=== PATIENT | female | born 1965 | race African-American/Black ===

== ENCOUNTER 2016-09-24 19:05 | Emergency (ER) | payer MEDICAID ==
[~2016-09-24] VITALS: Ht 167.6 cm; Wt 113.4 kg
[2016-09-24 20:29] LABS: MEAN CORPUSCULAR VOLUME 106 FL (80-99); MEAN PLATELET VOLUME 6.4 FL (6.5-10.1); PLATELET COUNT 289 K/UL (150-450); RED BLOOD COUNT 4.06 M/UL (4.20-5.40); WHITE BLOOD COUNT 5.5 K/UL (4.8-10.8)
[2016-09-24 20:30] LABS: APPEARANCE,URINE SLIGHTLY CLOUDY; KETONES,URINE NEGATIVE (NEGATIVE); LEUKOCYTE ESTERASE ,URINE 2+ (NEGATIVE); NITRITE,URINE POSITIVE (NEGATIVE); PH,URINE 7 (4.5-8.0); PROTEIN,URINE 2+ (NEGATIVE); UROBILINOGEN,URINE 4 MG/DL (0.0-1.0)
[2016-09-24 20:40] LABS: BACTERIA,URINE MANY /HPF; CALCIUM OXALATE CRYSTALS,UR FEW /LPF; SQUAMOUS EPITHELIAL CELL,UR MANY /LPF (NONE/OCC); TROPONIN I < 0.30 ng/mL (<=0.30)
[2016-09-24 20:43] LABS: ALANINE AMINOTRANSFERASE 35 U/L (3-33); ANION GAP 19 (5-15); ASPARTATE AMINO TRANSFERASE 94 U/L (5-40); CALCIUM 8.6 mg/dL (8.6-10.2); CARBON DIOXIDE 27 mEQ/L (20-30); CHLORIDE 99 mEQ/L (98-107); CREATININE 0.5 mg/dL (0.5-0.9); GLOMERULAR FILTRATION RATE > 60 mL/min (>60); HEMOLYSIS 8; LIPASE 40 U/L (< 60); POTASSIUM 3.2 mEQ/L (3.4-4.9); SODIUM 145 mEQ/L (135-145); TOTAL PROTEIN 7.5 g/dL (6.6-8.7)
[2016-09-24 21:58] VITALS: BP 134/86
[2016-09-24] MEDS ORDERED: Levofloxacin 500mg tab ORAL ONE (22:00)
[2016-09-24 22:01] LABS: BASOPHILS % (MANUAL) 1 % (0-2); EOSINOPHILS % (MANUAL) 5 % (0-3); LYMPHOCYTES % (MANUAL) 59 % (20-45); NEUTROPHILS % (MANUAL) 28 % (45-75); NUCLEATED RED BLOOD CELLS 1 /100 WBC; TOTAL CELLS COUNTED 100
[2016-09-24 22:02] LABS: ANISOCYTOSIS 1+; BAND NEUTROPHILS % (MANUAL) 0 % (0-8); MACROCYTES 2+; PLATELET ESTIMATE ADEQUATE; PLATELET MORPHOLOGY NORMAL; POLYCHROMASIA 1+
[2016-09-24] MEDS ORDERED: BACTRIM DS TAB1 EAC1 ORAL (22:07)
[2016-09-24] MEDS ORDERED: ZOFRAN4 M1 ORAL (22:08)
[2016-09-24 22:33] VITALS: BP 134/86
--- NOTE | 2016-09-25 08:58 | Diagnostic Imaging Report ---
Clinical Indication: Abdominal pain Technique: No oral contrast utilized, per emergency room physician request IV administration nonionic contrast. Venous phase spiral acquisition obtained through the abdomen and pelvis. Multiplanar reconstructions were generated. Total dose length product 1111 mGycm. CTDIvol(s) 19 mGy Comparison: None Findings: The appendix is normal. There is no evidence of diverticulosis or diverticulitis. No small bowel distention. No free or loculated intraperitoneal air or fluid. Distal esophagus, stomach, duodenum are unremarkable. The liver demonstrates diffuse low attenuation, consistent with fatty change. No focal abnormalities. The gallbladder is nondistended, demonstrates slight heterogeneity to the contents, small non-radiopaque calculi are not completely excludable. Bile ducts, pancreas, adrenals, spleen, kidneys are unremarkable. No retroperitoneal or mesenteric mass or adenopathy. No pelvic mass or adenopathy. The included lung bases are clear except for minimal atelectatic changes. The bones demonstrate mild degenerative spondylosis changes. Impression: No acute process Fatty liver Cannot rule out cholelithiasis. Consider sonography for further evaluation as clinically indicated This agrees with the preliminary interpretation provided overnight by Dr. Ponce The CT scanner at [facility] is accredited by the [employer] and the scans are performed using protocols designed to limit radiation exposure to as low as reasonably achievable to attain images of sufficient resolution adequate for diagnostic evaluation.
--- NOTE | 2016-09-27 14:17 | Emergency Room Report ---
History of Present Illness General Chief Complaint: Nausea, Vomiting, and Diarrhea Source: Patient, EMS Present Illness HPI Patient is a 51-year-old female brought in by EMS after increased abdominal pain as well as vomiting. The patient gradual onset of symptoms patient had prior history similar type symptoms. She reports having some pain to the epigastric area does not radiate. She denied any hematemesis or bloody stools. She states she is not . Allergies: Coded Allergies: PENICILLINS (Unverified Allergy, Unknown, 09/24/16) Patient History Reviewed Nursing Documentation: PMH: Agreed, PSxH: Agreed Nursing Documentation-PMH Past Medical History: No History, Except For History Of Psychiatric Problem: Yes - DEPRESSION Review of Systems All Other Systems: negative except mentioned in HPI Physical Exam Vital Signs Date Time Temp Pulse Resp B/P Pulse Ox O2 Delivery O2 Flow Rate FiO2 09/24/16 19:01 98.2 85 18 138/78 98 Room Air Sp02 EP Interpretation: reviewed, normal General Appearance: normal inspection, well appearing, no apparent distress, alert, GCS 15 Head: atraumatic ENT: normal ENT inspection, hearing grossly normal, normal voice Neck: normal inspection, full range of motion, supple, no bony tend Respiratory: normal inspection, lungs clear, normal breath sounds, no respiratory distress, no retraction, no wheezing Cardiovascular #1: regular rate, rhythm, no edema Gastrointestinal: normal inspection, normal bowel sounds, non tender, soft, no guarding, no hernia Genitourinary: no CVA tenderness Musculoskeletal: normal inspection, back normal, normal range of motion Neurologic: normal inspection, alert, oriented x3, responsive, racquet maker III-XII nml as tested, speech normal Psychiatric: normal inspection, judgement/insight normal, mood/affect normal Skin: normal inspection, normal color, no rash Medical Decision Making Diagnostic Impression: Primary Impression: Gallstone Additional Impression: Urinary tract infection ER Course Patient presented for abdominal pain. Differential diagnoses included ischemic bowel, appendicitis, perforated viscus, abdominal aortic aneurysm, inferior myocardial infarction, viral gastroenteritis Because of complexity of patient's case laboratory testing and imaging studies were ordered. The patient was given Zofran as well as IV fluids. CT the head and pelvis read by radiologist showed probable gallstones. The patient was noted to have urinary tract infection. She was given prescription for oral antibiotics The patient is advised to follow up with primary care doctor in 1-2 days. Patient is advised to return if any worsening condition or if any changes in status that are concerning. Labs Test 09/24/16 20:00 White Blood Count 5.5 K/UL (4.8-10.8) Red Blood Count 4.06 M/UL (4.20-5.40) Hemoglobin 14.7 G/DL (12.0-16.0) Hematocrit 43.1 % (37.0-47.0) Mean Corpuscular Volume 106 FL (80-99) Mean Corpuscular Hemoglobin 36.0 PG (27.0-31.0) Mean Corpuscular Hemoglobin Concent 34.0 G/DL (32.0-36.0) Red Cell Distribution Width 14.0 % (11.6-14.8) Platelet Count 289 K/UL (150-450) Mean Platelet Volume 6.4 FL (6.5-10.1) Neutrophils (%) (Auto) % (45.0-75.0) Lymphocytes (%) (Auto) % (20.0-45.0) Monocytes (%) (Auto) % (1.0-10.0) Eosinophils (%) (Auto) % (0.0-3.0) Basophils (%) (Auto) % (0.0-2.0) Differential Total Cells Counted 100 Neutrophils % (Manual) 28 % (45-75) Lymphocytes % (Manual) 59 % (20-45) Monocytes % (Manual) 7 % (1-10) Eosinophils % (Manual) 5 % (0-3) Basophils % (Manual) 1 % (0-2) Band Neutrophils 0 % (0-8) Nucleated Red Blood Cells 1 /100 WBC Platelet Estimate Adequate Platelet Morphology Normal Polychromasia 1+ Anisocytosis 1+ Macrocytosis 2+ Urine Color Yellow Urine Appearance Slightly cloudy Urine pH 7 (4.5-8.0) Urine Specific [place] 1.010 (1.005-1.035) Urine Protein 2+ (NEGATIVE) Urine Glucose (UA) Negative (NEGATIVE) Urine Ketones Negative (NEGATIVE) Urine Occult Blood 1+ (NEGATIVE) Urine Nitrite Positive (NEGATIVE) Urine Bilirubin Negative (NEGATIVE) Urine Urobilinogen 4 MG/DL (0.0-1.0) Urine Leukocyte Esterase 2+ (NEGATIVE) Urine RBC 2-4 /HPF (0 - 2) Urine WBC 10-15 /HPF (0 - 2) Urine Squamous Epithelial Cells Many /LPF (NONE/OCC) Urine Calcium Oxalate Crystals Few /LPF (NONE) Urine Bacteria Many /HPF (NONE) Sodium Level 145 mEQ/L (135-145) Potassium Level 3.2 mEQ/L (3.4-4.9) Chloride Level 99 mEQ/L (98-107) Carbon Dioxide Level 27 mEQ/L (20-30) Anion Gap 19 (5-15) Blood Urea Nitrogen 7 mg/dL (7-23) Creatinine 0.5 mg/dL (0.5-0.9) Estimat Glomerular Filtration Rate > 60 mL/min (>60) Glucose Level 86 mg/dL (74-106) Calcium Level 8.6 mg/dL (8.6-10.2) Total Bilirubin 0.4 mg/dL (0.0-1.2) Aspartate Amino Transf (AST/SGOT) 94 U/L (5-40) Alanine Aminotransferase (ALT/SGPT) 35 U/L (3-33) Alkaline Phosphatase 108 U/L (35-104) Troponin I < 0.30 ng/mL (<=0.30) Total Protein 7.5 g/dL (6.6-8.7) Albumin 3.9 g/dL (3.5-5.2) Globulin 3.6 g/dL Albumin/Globulin Ratio 1.0 (1.0-2.7) Lipase 40 U/L (< 60) Last Vital Signs Date Time Temp Pulse Resp B/P Pulse Ox O2 Delivery O2 Flow Rate FiO2 09/24/16 22:33 98.3 80 17 134/86 98 Room Air Status: improved Disposition: HOME, SELF-CARE Condition: Stable Scripts Ondansetron (Zofran) 4 Mg Tablet 4 MG ORAL Q6H Y for Nausea & Vomiting, #20 TAB Prov: Erasto Smith 09/24/16 Trimethoprim/Sulfamethoxazole 160/800* (BACTRIM DS TABLET*) 1 Each Tablet 1 TAB ORAL Q12H, #14 TAB 0 Refills Prov: Erasto Smith 09/24/16 Patient Instructions: Biliary Colic, Urinary Tract Infection Erasto Smith Sep 27, 2016 14:17
== END 2016-09-24 22:35 | disposition home or self-care (01) ==
LOC: EDBD 19:05 → EMR 21:34
DX: K80.20 Calculus of gallbladder without cholecystitis without obstruction (principal); N39.0 Urinary tract infection, site not specified; Z88.0 Allergy status to penicillin; F32.9 Major depressive disorder, single episode, unspecified
CPT/HCPCS: 36415; 74177; 80053; 81003; 83690; 84484; 85007; 85025; 87086; 87181; 96374; 99284; J2405; Q9967

== ENCOUNTER 2016-11-26 09:25 | Inpatient (IN) | payer MEDICAID ==
[~2016-11-26] VITALS: Ht 167.6 cm; Wt 128.8 kg
[~2016-11-26 09:25] MED LIST: BACTRIM DS TAB1 EAC1 ORAL; ZOFRAN4 M1 ORAL
[2016-11-26] MEDS ORDERED: LISINOPRIL10 MG ORAL (09:35)
[2016-11-26] MEDS ORDERED: ZOLOFT25 MG ORAL (09:35)
[2016-11-26] MEDS ORDERED: Solu-MEDROL 125mg Inj IVP ONE (09:45)
[2016-11-26] MEDS ORDERED: DiphenhydrAMINE 50mg/ml Inj IVP ONE (09:45)
[2016-11-26] MEDS ORDERED: Tubing IV Cassette IV ONE (09:46)
--- NOTE | 2016-11-26 09:59 | Emergency Room Report ---
History of Present Illness General Chief Complaint: Nausea Source: Patient Present Illness HPI 51 YO F walk-in patient with 2 days progressively worse facial swelling, lip swelling. Recently started ACEi for HTN. C/o mild throat irritation but no chest pain or SOB or abd pain or fever/chills, rash. Didnt take any OTC meds before coming to ED. Never had these symptoms before. Allergies: Coded Allergies: PENICILLINS (Unverified Allergy, Unknown, 09/24/16) Patient History Past Medical History: HTN Past Surgical History: none Pertinent Family History: none Social History: Denies: alcohol use, drug use, smoking Now: No Immunizations: UTD Reviewed Nursing Documentation: PMH: Agreed, PSxH: Agreed Nursing Documentation-PMH Hx Cardiac Problems: No Hx Hypertension: Yes Hx Pacemaker: No Hx Asthma: No Hx COPD: No Hx Diabetes: No Hx Cancer: No Hx Gastrointestinal Problems: No Hx Dialysis: No Hx Neurological Problems: No Hx Cerebrovascular Accident: No Hx Seizures: No Review of Systems All Other Systems: negative except mentioned in HPI Physical Exam Vital Signs Date Time Temp Pulse Resp B/P Pulse Ox O2 Delivery O2 Flow Rate FiO2 11/26/16 09:18 97.9 78 18 120/70 99 Room Air Sp02 EP Interpretation: reviewed, normal General Appearance: normal inspection, well appearing, alert, GCS 15, non-toxic , mild distress Head: normocephalic, atraumatic Eyes: bilateral eye EOMI, bilateral eye PERRL ENT: normal ENT inspection, hearing grossly normal, normal voice, other - Facial edema, angioedema of lips, tongue normal size. Oropharynx clear Neck: normal inspection, full range of motion, supple, no bony tend Respiratory: normal inspection, lungs clear, normal breath sounds, no respiratory distress, no retraction, no wheezing Cardiovascular #1: regular rate, rhythm, no edema Gastrointestinal: normal inspection, normal bowel sounds, non tender, soft, no guarding, no hernia Genitourinary: no CVA tenderness Musculoskeletal: normal inspection, back normal, normal range of motion, Herberth' s Sign negative Neurologic: normal inspection, alert, oriented x3, responsive, vulnerability assessment analyst III-XII nml as tested, motor strength/tone normal, speech normal Psychiatric: normal inspection, judgement/insight normal, mood/affect normal Skin: normal inspection, normal color, no rash Lymphatic: normal inspection Medical Decision Making Diagnostic Impression: Primary Impression: Angioedema Qualified Codes: T78.3XXA - Angioneurotic edema, initial encounter ER Course Labs: No leuks. H&H stable. Elevated LFTs but bili normal. Improved with Bendaryl, steroids Angioedema - likely from ACEi - Airway patent Admission to tele for further monitoring/evaluation as patient continued to take ACEi today Endorsed to Dr Michel for tele admission at 1109am EKG Diagnostic Results Rate: normal Rhythm: NSR ST Segments: no acute changes ASA given to the pt in ED: No Rhythm Strip Diag. Results EP Interpretation: yes Rate: 83 Rhythm: NSR, no PVC's, no ectopy Last Vital Signs Date Time Temp Pulse Resp B/P Pulse Ox O2 Delivery O2 Flow Rate FiO2 11/26/16 09:18 97.9 78 18 120/70 99 Room Air Status: improved Disposition: ADMITTED INPATIENT Condition: Serious Referrals: [facility],REFERRING (PCP) SALINA BUNN M.D. Nov 26, 2016 09:59
[2016-11-26 10:00] VITALS: BP 152/108
[2016-11-26 10:06] LABS: MEAN CORPUSCULAR HEMOGLOBIN 34.6 PG (27.0-31.0); MEAN CORPUSCULAR HGB CONC 31.7 G/DL (32.0-36.0); MEAN CORPUSCULAR VOLUME 109 FL (80-99); MEAN PLATELET VOLUME 7.4 FL (6.5-10.1); PLATELET COUNT 199 K/UL (150-450); RED BLOOD COUNT 4.43 M/UL (4.20-5.40); RED CELL DISTRIBUTION WIDTH 14.2 % (11.6-14.8); WHITE BLOOD COUNT 5.4 K/UL (4.8-10.8)
[2016-11-26 10:17] LABS: ALANINE AMINOTRANSFERASE 127 U/L (3-33); ALBUMIN/GLOBULIN RATIO 1.2 (1.0-2.7); ANION GAP 19 (5-15); ASPARTATE AMINO TRANSFERASE 252 U/L (5-40); CALCIUM 9.4 mg/dL (8.6-10.2); CARBON DIOXIDE 27 mEQ/L (20-30); CHLORIDE 97 mEQ/L (98-107); CREATININE 0.6 mg/dL (0.5-0.9); GLOMERULAR FILTRATION RATE > 60 mL/min (>60); HEMOLYSIS 7; POTASSIUM 3.6 mEQ/L (3.4-4.9); SODIUM 143 mEQ/L (135-145); TOTAL PROTEIN 8.1 g/dL (6.6-8.7)
[2016-11-26 10:59] LABS: BAND NEUTROPHILS % (MANUAL) 0 % (0-8); BASOPHILS % (MANUAL) 0 % (0-2); EOSINOPHILS % (MANUAL) 2 % (0-3); LYMPHOCYTES % (MANUAL) 79 % (20-45); MACROCYTES 1+; NEUTROPHILS % (MANUAL) 13 % (45-75); PLATELET ESTIMATE ADEQUATE; PLATELET MORPHOLOGY NORMAL; TOTAL CELLS COUNTED 100
[2016-11-26 11:00] LABS: HYPOCHROMASIA 1+
[2016-11-26 12:00] VITALS: BP 134/83
[2016-11-26 13:00] VITALS: BP 140/98
--- NOTE | 2016-11-26 13:13 | History and Physical ---
History of Present Illness General Date patient seen: Nov 26, 2016 Reason for Hospitalization: Nausea Present Illness HPI 51 year old lady with hx of htn was started recently on Lisinopril. She developed swelling of lips and came to ER for evaluation. She was diagnosed to have angioedema secondary to YAHIR inhibitors. and admitted for further w/u. Allergies: Coded Allergies: LISINOPRIL (Verified Allergy, Unknown, 11/26/16) PENICILLINS (Unverified Allergy, Unknown, 09/24/16) Medication History Scheduled Lisinopril* (Lisinopril*), 20 MG ORAL DAILY, (Reported) Sertraline Hcl* (Zoloft*), Unknown Dose ORAL DAILY, (Reported) Trimethoprim/Sulfamethoxazole 160/800* (Bactrim Ds Tablet*), 1 TAB ORAL Q12H Scheduled PRN Ondansetron (Zofran), 4 MG ORAL Q6H PRN for Nausea & Vomiting Patient History Healthcare decision maker Resuscitation status Advanced Directive on File Past Medical/Surgical History Past Medical/Surgical History: (1) HTN (hypertension) Review of Systems All Other Systems: negative except mentioned in HPI Physical Exam General Appearance: WD/WN Lines, tubes and drains: peripheral HEENT: normocephalic Neck: non-tender, normal alignment Respiratory/Chest: chest wall non-tender, normal breath sounds Cardiovascular/Chest: normal peripheral pulses Abdomen: normal bowel sounds Genitourinary/Rectal: normal genital exam Extremities: normal range of motion Last 24 Hour Vital Signs Date Time Temp Pulse Resp B/P Pulse Ox O2 Delivery O2 Flow Rate FiO2 11/26/16 12:27 97.9 71 16 134/83 99 Room Air 11/26/16 12:00 71 16 134/83 99 Room Air 11/26/16 10:00 64 16 152/108 95 Room Air 11/26/16 09:18 97.9 78 18 120/70 99 Room Air Laboratory Tests Test 11/26/16 09:25 White Blood Count 5.4 K/UL (4.8-10.8) Red Blood Count 4.43 M/UL (4.20-5.40) Hemoglobin 15.3 G/DL (12.0-16.0) Hematocrit 48.4 % (37.0-47.0) H Mean Corpuscular Volume 109 FL (80-99) H Mean Corpuscular Hemoglobin 34.6 PG (27.0-31.0) H Mean Corpuscular Hemoglobin Concent 31.7 G/DL (32.0-36.0) L Red Cell Distribution Width 14.2 % (11.6-14.8) Platelet Count 199 K/UL (150-450) Mean Platelet Volume 7.4 FL (6.5-10.1) Neutrophils (%) (Auto) % (45.0-75.0) Lymphocytes (%) (Auto) % (20.0-45.0) Monocytes (%) (Auto) % (1.0-10.0) Eosinophils (%) (Auto) % (0.0-3.0) Basophils (%) (Auto) % (0.0-2.0) Differential Total Cells Counted 100 Neutrophils % (Manual) 13 % (45-75) L Lymphocytes % (Manual) 79 % (20-45) H Monocytes % (Manual) 6 % (1-10) Eosinophils % (Manual) 2 % (0-3) Basophils % (Manual) 0 % (0-2) Band Neutrophils 0 % (0-8) Platelet Estimate Adequate Platelet Morphology Normal Hypochromasia 1+ Macrocytosis 1+ Sodium Level 143 mEQ/L (135-145) Potassium Level 3.6 mEQ/L (3.4-4.9) Chloride Level 97 mEQ/L (98-107) L Carbon Dioxide Level 27 mEQ/L (20-30) Anion Gap 19 (5-15) H Blood Urea Nitrogen 6 mg/dL (7-23) L Creatinine 0.6 mg/dL (0.5-0.9) Estimat Glomerular Filtration Rate > 60 mL/min (>60) Glucose Level 101 mg/dL (74-106) Calcium Level 9.4 mg/dL (8.6-10.2) Total Bilirubin 0.8 mg/dL (0.0-1.2) Aspartate Amino Transf (AST/SGOT) 252 U/L (5-40) H Alanine Aminotransferase (ALT/SGPT) 127 U/L (3-33) H Alkaline Phosphatase 120 U/L (35-104) H Total Protein 8.1 g/dL (6.6-8.7) Albumin 4.5 g/dL (3.5-5.2) Globulin 3.6 g/dL Albumin/Globulin Ratio 1.2 (1.0-2.7) Height (Feet): 5 Height (Inches): 6.00 Weight (Pounds): 284 Medications Current Medications Medications (Trade) Dose Ordered Sig/Donny Route PRN Reason Start Time Stop Time Status Last Admin Dose Admin Ondansetron HCl (Zofran) 4 mg Q6H PRN ORAL Nausea & Vomiting 11/26/16 13:15 12/26/16 13:14 UNV Sertraline HCl (Zoloft) 10 mg DAILY ORAL 11/27/16 09:00 12/27/16 08:59 UNV Assessment/Plan Problem List: (1) Angioedema ICD Codes: T78.3XXA - Angioneurotic edema, initial encounter SNOMED: 14412615 Qualifiers: Qualified Codes: T78.3XXA - Angioneurotic edema, initial encounter (2) HTN (hypertension) ICD Codes: I10 - Essential (primary) hypertension SNOMED: 30367662 Assessment/Plan steroids symptomatic treatment monitor BP JORJE Andrews Nov 26, 2016 13:13
[2016-11-26] MEDS ORDERED: Labetalol 5mg/ml 20ml vial IV PRN (13:15)
[2016-11-26] MEDS ORDERED: Mylanta II UD 30ml ORAL PRN (13:15)
[2016-11-26 13:16] LABS: OTHERS PATHOLOGIST COMMENT
[2016-11-26] MEDS: Morphine Sulfate 2mg/ml Inj IVP PRN ×2 (13:47→18:05)
[2016-11-26 16:30] VITALS: BP 137/80
[2016-11-26] MEDS: Solu-MEDROL 125mg Inj IV SCH ×2 (17:23→23:34)
[2016-11-26] MEDS ORDERED: Metoclopramide 10mg/2ml Inj IVP PRN (18:45)
[2016-11-26 20:12] VITALS: BP 163/98
--- NOTE | 2016-11-26 20:38 | Cardiology Progress Note ---
Assessment/Plan Assessment/Plan angioedema due to acei htn alcohol with drwawl [facility] meds for with drwwl Objective Last 24 Hour Vital Signs Date Time Temp Pulse Resp B/P Pulse Ox O2 Delivery O2 Flow Rate FiO2 11/26/16 20:12 97.9 66 20 163/98 93 Room Air 11/26/16 16:58 78 187/112 11/26/16 16:30 98.2 72 18 137/80 95 Room Air 11/26/16 16:00 74 11/26/16 13:34 97 11/26/16 13:00 97.7 73 18 140/98 95 Room Air 11/26/16 12:27 97.9 71 16 134/83 99 Room Air 11/26/16 12:00 71 16 134/83 99 Room Air 11/26/16 10:00 64 16 152/108 95 Room Air 11/26/16 09:18 97.9 78 18 120/70 99 Room Air Laboratory Tests Test 11/26/16 09:25 White Blood Count 5.4 K/UL (4.8-10.8) Red Blood Count 4.43 M/UL (4.20-5.40) Hemoglobin 15.3 G/DL (12.0-16.0) Hematocrit 48.4 % (37.0-47.0) H Mean Corpuscular Volume 109 FL (80-99) H Mean Corpuscular Hemoglobin 34.6 PG (27.0-31.0) H Mean Corpuscular Hemoglobin Concent 31.7 G/DL (32.0-36.0) L Red Cell Distribution Width 14.2 % (11.6-14.8) Platelet Count 199 K/UL (150-450) Mean Platelet Volume 7.4 FL (6.5-10.1) Neutrophils (%) (Auto) % (45.0-75.0) Lymphocytes (%) (Auto) % (20.0-45.0) Monocytes (%) (Auto) % (1.0-10.0) Eosinophils (%) (Auto) % (0.0-3.0) Basophils (%) (Auto) % (0.0-2.0) Differential Total Cells Counted 100 Neutrophils % (Manual) 13 % (45-75) L Lymphocytes % (Manual) 79 % (20-45) H Monocytes % (Manual) 6 % (1-10) Eosinophils % (Manual) 2 % (0-3) Basophils % (Manual) 0 % (0-2) Band Neutrophils 0 % (0-8) Other Cell Type Pathologist comment Platelet Estimate Adequate Platelet Morphology Normal Hypochromasia 1+ Macrocytosis 1+ Sodium Level 143 mEQ/L (135-145) Potassium Level 3.6 mEQ/L (3.4-4.9) Chloride Level 97 mEQ/L (98-107) L Carbon Dioxide Level 27 mEQ/L (20-30) Anion Gap 19 (5-15) H Blood Urea Nitrogen 6 mg/dL (7-23) L Creatinine 0.6 mg/dL (0.5-0.9) Estimat Glomerular Filtration Rate > 60 mL/min (>60) Glucose Level 101 mg/dL (74-106) Calcium Level 9.4 mg/dL (8.6-10.2) Total Bilirubin 0.8 mg/dL (0.0-1.2) Aspartate Amino Transf (AST/SGOT) 252 U/L (5-40) H Alanine Aminotransferase (ALT/SGPT) 127 U/L (3-33) H Alkaline Phosphatase 120 U/L (35-104) H Total Protein 8.1 g/dL (6.6-8.7) Albumin 4.5 g/dL (3.5-5.2) Globulin 3.6 g/dL Albumin/Globulin Ratio 1.2 (1.0-2.7) HUSEYIN BUCHANAN Nov 26, 2016 20:38
[2016-11-26] MEDS ORDERED: Zolpidem 5mg tab ORAL PRN (21:00)
[2016-11-26] MEDS ORDERED: Miralax 17gm pkt ORAL PRN (21:00)
[2016-11-26] MEDS: LORazepam Inj 2mg/ml 1ml IV PRN (23:10)
[2016-11-27] VITALS: BP 105/67
--- NOTE | 2016-11-27 01:18 | Consultation ---
DATE OF CONSULTATION: 11/26/2016 CARDIOLOGY CONSULTATION CONSULTING PHYSICIAN: Herb Griggs M.D. REFERRING PHYSICIAN: Cat Michel M.D. REASON FOR REFERRAL: Angioedema, likely secondary to YAHIR inhibitors. HISTORY OF PRESENT ILLNESS: This is a 51-year-old female with history of hypertension and multiple . The patient developed some fever and swelling in the face, mouth, and lips and complains of some fluttering sensation and irritation. No chest pain. No shortness of breath. No abdominal pain. No nausea or vomiting. She came in to the hospital and was treated and is now better. She is now having issues with withdrawal from alcohol though she feels that she through DTs as well likely. No chest pain. No PND or no orthopnea. No palpitations. REVIEW OF SYSTEMS: Gastrointestinal: She does have some nausea and vomiting, but no bloody stools or black tarry stools. Genitourinary: Denies. Pulmonary: Denies. Constitutional: Denies except for the fact that she is tremulous that is related to withdrawal from alcohol. PHYSICAL EXAMINATION: GENERAL: She is an obese female, in no apparent distress. She does feel somewhat anxious. LUNGS: Clear to auscultation and percussion. CARDIAC: S1 is normal. S2 is normal. Regular rate and rhythm. ABDOMEN: Soft and obese. Positive bowel sounds. EXTREMITIES: There is no clubbing, cyanosis, nor edema. NEUROLOGIC: Awake, alert, and responsive. LABORATORY VALUES: White count of 5.4, hemoglobin 15.3, and platelet count of 199,000. Sodium is 142, potassium 3.6, chloride , bicarbonate 27, BUN 6, and creatinine 0.6. Liver function tests, AST of 252, ALT of 127, and alkaline phosphatase of 120. She did have an EKG performed in the emergency showed sinus rhythm. No ST-T wave abnormalities. ASSESSMENT: 1. Angioneurotic edema likely secondary to angiotensin converting enzyme inhibitors. 2. Hypertension history. 3. Alcoholism. 4. Alcohol withdrawal syndrome. PLAN: Dr. Michel, this patient was seen in cardiac consultation. The patient's blood pressure is elevated partly related to the alcohol withdrawal. I would suggest starting her on some Norvasc for blood pressure control. She should be on medications and some anxiolytics for her withdrawals from alcohol. I will leave that up to you, although I would like to administer a low-dose of anxiolytic medication for the time being. Herb Griggs M.D. DR: JAMIE JOB#: [id number] CC:
[2016-11-27] MEDS: LORazepam Inj 2mg/ml 1ml IV PRN (03:53)
[2016-11-27 04:20] VITALS: BP 146/98
[2016-11-27] MEDS: Solu-MEDROL 125mg Inj IV SCH ×2 (05:13→11:40)
[2016-11-27] MEDS: Morphine Sulfate 2mg/ml Inj IVP PRN ×2 (05:20→10:47)
[2016-11-27 07:58] VITALS: BP 162/93
[2016-11-27 08:14] LABS: ALANINE AMINOTRANSFERASE 119 U/L (3-33); ALBUMIN/GLOBULIN RATIO 1.3 (1.0-2.7); ANION GAP 22 (5-15); ASPARTATE AMINO TRANSFERASE 196 U/L (5-40); CALCIUM 9.2 mg/dL (8.6-10.2); CARBON DIOXIDE 22 mEQ/L (20-30); CHLORIDE 95 mEQ/L (98-107); CHOLESTEROL 282 mg/dL (< 200); CREATININE 0.6 mg/dL (0.5-0.9); GLOMERULAR FILTRATION RATE > 60 mL/min (>60); HEMOLYSIS 11; POTASSIUM 3.5 mEQ/L (3.4-4.9); SODIUM 139 mEQ/L (135-145); TOTAL PROTEIN 7.7 g/dL (6.6-8.7)
[2016-11-27 08:16] LABS: MEAN CORPUSCULAR HEMOGLOBIN 34.3 PG (27.0-31.0); MEAN CORPUSCULAR HGB CONC 31.9 G/DL (32.0-36.0); MEAN CORPUSCULAR VOLUME 108 FL (80-99); MEAN PLATELET VOLUME 8.1 FL (6.5-10.1); PLATELET COUNT 193 K/UL (150-450); RED BLOOD COUNT 4.09 M/UL (4.20-5.40); RED CELL DISTRIBUTION WIDTH 14.4 % (11.6-14.8); WHITE BLOOD COUNT 2.2 K/UL (4.8-10.8)
[2016-11-27 08:17] LABS: THYROID STIMULATING HORMONE 0.901 uIU/mL (0.300-4.500)
[2016-11-27 08:31] LABS: CHOLESTEROL/HDL RATIO 1.5 (3.3-4.4); LDL CHOLESTEROL (CALC.) 86 mg/dL (60-99)
[2016-11-27 08:44] LABS: BILIRUBIN,DIRECT 0.3 mg/dL (0.1-0.3)
[2016-11-27] MEDS ORDERED: Sertraline 50mg tab ORAL SCH (09:00)
[2016-11-27 10:45] LABS: BAND NEUTROPHILS % (MANUAL) 0 % (0-8); BASOPHILS % (MANUAL) 0 % (0-2); EOSINOPHILS % (MANUAL) 0 % (0-3); LYMPHOCYTES % (MANUAL) 24 % (20-45); MACROCYTES 1+; NEUTROPHILS % (MANUAL) 70 % (45-75); PLATELET ESTIMATE ADEQUATE; PLATELET MORPHOLOGY NORMAL; TOTAL CELLS COUNTED 100
[2016-11-27 11:21] VITALS: BP 160/104
[2016-11-27] MEDS ORDERED: NORVASC10 MG ORAL (12:56)
--- NOTE | 2016-11-27 13:00 | Pulmonology Progress Note ---
Assessment/Plan Problems: (1) HTN (hypertension) (2) Angioedema Assessment/Plan improved bp better with norvasc. Subjective ROS Limited/Unobtainable: No Interval Events: all sympotms resolved Constitutional: Reports: no symptoms HEENT: Repors: no symptoms Respiratory: Reports: no symptoms Allergies: Coded Allergies: LISINOPRIL (Verified Allergy, Unknown, 11/26/16) PENICILLINS (Unverified Allergy, Unknown, 09/24/16) Objective Last 24 Hour Vital Signs Date Time Temp Pulse Resp B/P Pulse Ox O2 Delivery O2 Flow Rate FiO2 11/27/16 11:21 98.1 80 18 160/104 95 Room Air 11/27/16 08:31 83 150/93 11/27/16 07:58 98.2 83 18 162/93 94 Room Air 11/27/16 04:20 98.1 88 20 146/98 93 Room Air 11/27/16 04:00 82 11/27/16 00:40 74 11/27/16 00:00 97.2 83 20 105/67 98 Room Air 11/26/16 23:36 66 163/98 11/26/16 20:12 97.9 66 20 163/98 93 Room Air 11/26/16 16:58 78 187/112 11/26/16 16:30 98.2 72 18 137/80 95 Room Air 11/26/16 16:00 74 11/26/16 13:34 97 11/26/16 13:00 97.7 73 18 140/98 95 Room Air Intake and Output 11/26/16 11/27/16 19:00 07:00 Intake Total 620 ml 500 ml Output Total 2 ml Balance 620 ml 498 ml Intake Oral 120 ml IV Total 500 ml 500 ml Output Urine Total 2 ml # Voids 1 General Appearance: WD/WN HEENT: atraumatic Respiratory/Chest: chest wall non-tender, lungs clear Cardiovascular: normal peripheral pulses, normal rate Abdomen: normal bowel sounds, soft, non tender Genitourinary: normal external genitalia Extremities: no cyanosis Skin: no rash Laboratory Tests 11/27/16 07:00: White Blood Count 2.2#L, Red Blood Count 4.09L, Hemoglobin 14.1, Hematocrit 44.0 , Mean Corpuscular Volume 108H, Mean Corpuscular Hemoglobin 34.3H, Mean Corpuscular Hemoglobin Concent 31.9L, Red Cell Distribution Width 14.4, Platelet Count 193, Mean Platelet Volume 8.1, Neutrophils (%) (Auto) , Lymphocytes (%) (Auto) , Monocytes (%) (Auto) , Eosinophils (%) (Auto) , Basophils (%) (Auto) , Differential Total Cells Counted 100, Neutrophils % ( Manual) 70, Lymphocytes % (Manual) 24, Monocytes % (Manual) 6, Eosinophils % ( Manual) 0, Basophils % (Manual) 0, Band Neutrophils 0, Platelet Estimate Adequate, Platelet Morphology Normal, Red Blood Cell Morphology , Macrocytosis 1 +, Sodium Level 139, Potassium Level 3.5, Chloride Level 95L, Carbon Dioxide Level 22, Anion Gap 22H, Blood Urea Nitrogen 11, Creatinine 0.6, Estimat Glomerular Filtration Rate > 60, Glucose Level 168H, Calcium Level 9.2, Total Bilirubin 1.1, Direct Bilirubin 0.3, Aspartate Amino Transf (AST/SGOT) 196H, Alanine Aminotransferase (ALT/SGPT) 119H, Alkaline Phosphatase 92, Total Protein 7.7, Albumin 4.4, Globulin 3.3, Albumin/Globulin Ratio 1.3, Triglycerides Level 52, Cholesterol Level 282H, LDL Cholesterol 86, HDL Cholesterol 186H, Cholesterol/HDL Ratio 1.5L, Thyroid Stimulating Hormone (TSH) 0.901 Current Medications Medications (Trade) Dose Ordered Sig/Donny Route PRN Reason Start Time Stop Time Status Last Admin Dose Admin Acetaminophen (Tylenol) 650 mg Q4H PRN ORAL Fever/Headache/Mild Pain 11/26/16 16:00 12/26/16 15:59 11/26/16 23:08 Al Hydroxide/Mg Hydroxide (Mylanta II) 30 ml Q6H PRN ORAL dyspepsia 11/26/16 13:15 12/26/16 13:14 Amlodipine Besylate (Norvasc) 5 mg DAILY ORAL 11/26/16 21:00 12/26/16 20:59 11/27/16 08:31 Dextrose (Dextrose 50%) STAT PRN IV Hypoglycemia 11/26/16 13:15 12/26/16 13:14 Hydralazine HCl (Apresoline) 20 mg Q4H PRN IV sbp more than 160 11/26/16 13:15 12/26/16 13:14 Labetalol HCl (Normodyne) 20 mg EVERY HOUR PRN IV sbp more than 180 11/26/16 13:15 12/26/16 13:14 11/26/16 16:58 Lorazepam (Ativan 2mg/ml 1ml) 0.5 mg Q4H PRN IV For Anxiety 11/26/16 14:00 12/03/16 13:59 11/27/16 03:53 Methylprednisolone Sodium Succinate (Solu-MEDROL) 60 mg EVERY 6 HOURS IV 11/26/16 18:00 12/26/16 17:59 11/27/16 11:40 Metoclopramide HCl (Reglan) 20 mg Q6H PRN IVP N/V SECOND LINE AGENT 11/26/16 18:45 12/26/16 18:44 Morphine Sulfate (Morphine Sulfate) 1 mg Q4H PRN IVP PAIN 4-10 11/26/16 13:15 12/03/16 13:14 11/27/16 10:47 Ondansetron HCl (Zofran) 4 mg Q6H PRN ORAL Nausea & Vomiting 11/26/16 13:15 12/26/16 13:14 11/27/16 08:51 Polyethylene Glycol (Miralax) 17 gm HSPRN PRN ORAL Constipation 11/26/16 21:00 12/26/16 20:59 Promethazine HCl 25 mg 25 mg Q4H PRN IV N/V THIRD LINE AGENT 11/26/16 19:00 12/26/16 18:59 11/26/16 20:52 Sertraline HCl (Zoloft) 50 mg DAILY ORAL 11/27/16 09:00 12/27/16 08:59 11/27/16 08:30 Sodium Chloride (0.45% NS 1000ml) 1,000 ml @ 50 mls/hr Q20H IV 11/26/16 20:15 12/26/16 20:14 11/26/16 20:52 Zolpidem Tartrate (Ambien) 5 mg HSPRN PRN ORAL Insomnia 11/26/16 21:00 12/26/16 20:59 11/27/16 01:23 JORJE MONROE Nov 27, 2016 13:00
--- NOTE | 2016-11-27 23:06 | Diagnostic Imaging Report ---
APPROVED REPORT CPT Code: 44686 Present Symptoms Comments: Pain Technically difficult study due to vessel depth (mid-thigh and calf area). Risk Factors Obesity BILATERAL: Imaging reveals a patent deep venous system bilaterally. There is no evidence of thrombus within the femoral, popliteal or tibial segments. The greater saphenous veins are also within normal limits. Doppler indicates normal spontaneous flow within these segments.
--- NOTE | 2016-11-28 07:01 | Discharge Summary ---
Discharge Summary Hospital Course Date of Admission Nov 26, 2016 at 10:45 Date of Discharge Nov 27, 2016 at 17:33 Admitting Diagnosis ANGIOEDEMA HPI Phuong Sweeney is a 51 year old female who was admitted on Nov 26, 2016 at 10: 45 for Angioedema Hospital Course [id number] Discharge Discharge Disposition Patient was discharged to Home (01) Discharge Diagnoses: Lisa Olvera NP Nov 28, 2016 07:01
--- NOTE | 2016-11-28 08:08 | Discharge Summary 2 SIG ---
DATE OF ADMISSION: 11/26/2016 DATE OF DISCHARGE: 11/27/2016 SURVEY ENGINEER: Herb Griggs M.D. BRIEF HOSPITAL COURSE: The patient is a 51-year-old female who presented to the ED complaining of two days progressively worse facial swelling with lip swelling. She was recently started on YAHIR inhibitors, specifically lisinopril for hypertension and complained of mild throat irritation, but no shortness of breath. She was diagnosed to have angioedema secondary to YAHIR inhibitors and was admitted for further workup. Dr. Griggs was consulted. The patient was given Norvasc for blood pressure control and was given IV steroid and symptomatic treatment. Following day, the blood pressure improved with Norvasc. The patient was discharged home to follow up with PMD. FINAL DIAGNOSES: 1. Angioedema secondary to lisinopril. 2. Hypertension. 3. Alcoholism. Cat Michel M.D. I have been assigned to dictate discharge summary on this account and I was not involved in the patient's management. Lisa Olvera N.P. DR: JESSICA JOB#: [id number] CC:
[2016-11-28 20:00] VITALS: BP 122/77
--- NOTE | 2016-11-28 21:19 | Cardiology Report ---
APPROVED REPORT EKG Measurement Heart [id number] Normal sinus rhythm Cannot rule out Anterior infarct, age undetermined Abnormal ECG
== END 2016-11-27 17:33 | disposition home or self-care (01) | DRG 811 ==
LOC: EDBD 09:25 → EMR 09:40 → 2E 10:45 → EDBEDREQ 10:58 → 2E 13:20
DX: T78.3XXA Angioneurotic edema, initial encounter (principal); Z68.42 Body mass index [BMI] 45.0-49.9, adult; I10 Essential (primary) hypertension; T46.4X5A Adverse effect of angiotensin-converting-enzyme inhibitors, initial encounter; Y92.009 Unspecified place in unspecified non-institutional (private) residence as the place of occurrence of the external cause; Z88.0 Allergy status to penicillin; Z88.8 Allergy status to other drugs, medicaments and biological substances; E66.9 Obesity, unspecified; F10.239 Alcohol dependence with withdrawal, unspecified
CPT/HCPCS: 36415; 80053; 80061; 82248; 84443; 85007; 85025; 93005; 93970